=== PATIENT | female | born 1960 | race Caucasian/White ===

== ENCOUNTER 2019-04-10 10:03 | Emergency (ER) | payer MEDICARE, MEDICAID ==
[~2019-04-10] VITALS: Ht 170.2 cm; Wt 116.0 kg
[~2019-04-10 10:03] MED LIST: ACET1TAB12 PO; ACET1TAB14 PO; CLOZ100T13 PO; DOCU-28 PO; IBUP-1986 PO; OMEP-50 PO; PROP40TA72 PO
[2019-04-10 11:49] VITALS: BP 114/81
--- NOTE | 2019-04-10 11:54 | NUR ---
awaiting registration to finish with pt prior to dc
== END 2019-04-10 12:03 | disposition home or self-care (01) ==
LOC: ER 10:04
DX: R25.1 Tremor, unspecified (principal); Z88.0 Allergy status to penicillin; Z88.5 Allergy status to narcotic agent; Z79.899 Other long term (current) drug therapy; Z87.891 Personal history of nicotine dependence; Z60.2 Problems related to living alone; W07.XXXA Fall from chair, initial encounter; Y93.89 Activity, other specified; Y92.89 Other specified places as the place of occurrence of the external cause; Y99.8 Other external cause status
CPT/HCPCS: 82948; 99284